=== PATIENT | male | born 1980 | race Hispanic/Latino ===

== ENCOUNTER 2019-08-17 08:38 | Emergency (ER) | payer SELFPAY ==
[2019-08-17] MEDS ORDERED: KETOROLAC TROMETHAMINE 60 MG/2 ML VIAL ONE (09:31)
== END 2019-08-17 09:48 | disposition home or self-care (01) ==
LOC: EDH 08:38
DX: S93.492A Sprain of other ligament of left ankle, initial encounter (principal); J45.909 Unspecified asthma, uncomplicated; I10 Essential (primary) hypertension; E11.9 Type 2 diabetes mellitus without complications; E78.00 Pure hypercholesterolemia, unspecified; X50.1XXA Overexertion from prolonged static or awkward postures, initial encounter; Y93.89 Activity, other specified; Y92.098 Other place in other non-institutional residence as the place of occurrence of the external cause; Y99.8 Other external cause status
CPT/HCPCS: 73610; 96372; 99284; J1885

== ENCOUNTER 2019-11-15 18:37 | Inpatient (IN) | payer SELFPAY ==
[~2019-11-15] VITALS: Ht 167.6 cm; Wt 84.1 kg
[2019-11-15] MEDS ORDERED: MORPHINE SULFATE 2 MG/ML 1ML SYG ONE (19:02)
[2019-11-15] MEDS ORDERED: ONDANSETRON HCL 4 MG/2 ML VIAL ONE (19:02)
[2019-11-15] MEDS ORDERED: SODIUM CHLORIDE 0.9% 1000ML 1,000 ML IV ONE ×2 (19:03→22:51)
[2019-11-15 19:25] LABS: APPEARANCE,URINE Clear (CLEAR); BILIRUBIN,URINE Negative (NEGATIVE); COLOR,URINE Yellow (YELLOW); GLUCOSE, URINE (UA) >=1000 mg/dL (NEGATIVE); KETONES,URINE Negative (NEGATIVE); LEUKOCYTE ESTERASE ,URINE Negative (NEGATIVE); NITRATE,URINE Negative (NEGATIVE); OCCULT BLOOD,URINE Moderate (NEGATIVE); PH,URINE 5.5 (5.0-8.0); PROTEIN,URINE POS 2+ mg/dL (NEGATIVE)
[2019-11-15 19:34] LABS: BACTERIA,URINE Few /HPF (None Seen); MUCUS,URINE Few LPF (None Seen); SQUAMOUS EPITHELIAL CELL,UR 0-2 /HPF (0-2)
[2019-11-15 20:06] LABS: BASOPHILS % (AUTO) 0.3 % (0.0-5.0); EOSINOPHILS % (AUTO) 1.6 % (0.0-8.0); HEMATOCRIT 44.5 % (42-54); LYMPHOCYTES % (AUTO) 31.5 % (21.0-51.0); MEAN CORPUSCULAR HEMOGLOBIN 28.5 pg (27.0-33.0); MEAN CORPUSCULAR HGB CONC 34.4 g/dL (32.0-36.0); MEAN CORPUSCULAR VOLUME 82.9 fL (79-99); MONOCYTES % (AUTO) 5.4 % (3.0-13.0); NEUTROPHILS % (AUTO) 60.5 % (40.0-77.0); PLATELET COUNT (AUTO) 240 K/uL (130-400); RED BLOOD CELL COUNT(AUTO) 5.37 MIL/uL (4.50-6.20); RED CELL DISTRIBUTION WIDTH 12.6 % (11.0-15.5); WHITE BLOOD COUNT (AUTO) 9.7 K/uL (4.8-10.8)
[2019-11-15 20:18] LABS: CREATININE 1.1 mg/dL (0.5-1.5); POTASSIUM 3.8 mmol/L (3.5-5.1)
[2019-11-15 20:22] LABS: ALBUMIN 4.4 g/dL (3.5-5.0); BILIRUBIN,TOTAL 0.4 mg/dL (0.2-1.0); TOTAL PROTEIN, SERUM 7.7 g/dL (6.0-8.3)
[2019-11-15] MEDS ORDERED: KETOROLAC TROMETHAMINE 30MG/ML ONE (20:36)
[2019-11-15] MEDS ORDERED: TAMSULOSIN HCL 0.4 MG CAP.ER.24H ONE (20:36)
[2019-11-15] MEDS: SODIUM CHLORIDE 0.9% 1000ML 1,000 ML IV SCH (21:32)
[2019-11-15] MEDS ORDERED: ONDANSETRON HCL 4 MG/2 ML VIAL IV PRN (21:45)
[2019-11-15] MEDS ORDERED: LACTULOSE 20 GM/30 ML UDCUP PO PRN (21:45)
[2019-11-15] MEDS ORDERED: ACETAMINOPHEN 325 MG TAB PO PRN ×2 (21:45)
[2019-11-15] MEDS ORDERED: HYDRALAZINE HCL 20 MG/ML VIAL IV PRN (22:30)
[2019-11-16] VITALS (7 sets, daily range): BP systolic 129–145; BP diastolic 76–93
[2019-11-16] MEDS ORDERED: MORPHINE SULFATE 4 MG/1ML SYG ONE (00:13)
[2019-11-16] MEDS ORDERED: PHARMACY COMMUNICATION MISC SCH (03:15)
[2019-11-16] MEDS: SODIUM CHLORIDE 0.9% 1000ML 1,000 ML IV SCH ×3 (04:13→21:07)
[2019-11-16] MEDS: MORPHINE SULFATE 4 MG/1ML SYG IV PRN ×2 (04:14→12:29)
[2019-11-16] MEDS: INSULIN HUMULIN R 100 UNIT/ML 3ML SQ SCH ×4 (06:19→21:00)
[2019-11-16] MEDS ORDERED: FLU VACC QS2019-20 36MOS UP/PF 60 MCG/0.5 ML ML IM SCH ×2 (06:30→10:00)
--- NOTE | 2019-11-16 06:58 | NUR ---
FLU Flu vaccine given.
--- NOTE | 2019-11-16 09:20 | NUR ---
DR. MERCHANT PAGED
[2019-11-16] MEDS: FAMOTIDINE 20MG TAB 20 MG TAB PO SCH ×2 (10:39→21:07)
[2019-11-16] MEDS: ENOXAPARIN SODIUM 40 MG/0.4 ML SYRINGE SQ SCH (12:30)
--- NOTE | 2019-11-16 15:33 | NUR ---
DC PLAN MEET WITH PATIENT, AND MOTHER AT BEDSIDE. PER PATIENT, IS INDEPENDENT WITH ADLS, LIVES WITH , MOTHER, AND CHILDREN (AGE RANGING FROM 5-16YR OLD), HAS NEBULIZER, NO PROVIDER OR COMMUNITY SERVICES IN USE, AND FEELS SAFE TO RETURN HOME ONCE DISCHARGED FROM HOSPITAL. Addendum: 11/16/19 at 1536 by ANNEMARIE MARISCAL RN CM Amended: Links added.
--- NOTE | 2019-11-16 16:00 | NUR ---
[facility] PATIENT PER PATIENT, GOES TO [facility] AND WILL FOLLW UP THERE
--- NOTE | 2019-11-16 16:01 | NUR ---
RE-PAGED DR. MERCHANT; SPOKE W/ YESENIA SPACE OFFICER STATES DOCTOR HAS BEEN IN SURGERY BUT WILL CONVEY MESSAGE TO HER.
[2019-11-16] MEDS: KETOROLAC TROMETHAMINE 15MG/ML IV PRN (17:48)
--- NOTE | 2019-11-16 20:02 | NUR ---
NPO STATUS Pt told re npo after midnight status,verbalized understanding.
--- NOTE | 2019-11-16 20:12 | NUR ---
dr. clements called back states is covering for puente orders entered.
[2019-11-17] VITALS (26 sets, daily range): BP systolic 109–146; BP diastolic 62–95
[2019-11-17] MEDS: SODIUM CHLORIDE 0.9% 1000ML 1,000 ML IV SCH ×3 (03:18→20:57)
[2019-11-17] MEDS: MORPHINE SULFATE 4 MG/1ML SYG IV PRN ×2 (03:19→08:15)
[2019-11-17] MEDS: INSULIN HUMULIN R 100 UNIT/ML 3ML SQ SCH ×4 (05:31→21:01)
--- NOTE | 2019-11-17 06:08 | NUR ---
SHOWERED Pt took a shower,remains Npo after midnight for possible procedure.
[2019-11-17 06:33] LABS: CREATININE 1.1 mg/dL (0.5-1.5); POTASSIUM 4.1 mmol/L (3.5-5.1)
[2019-11-17] MEDS: ENOXAPARIN SODIUM 40 MG/0.4 ML SYRINGE SQ SCH (08:29)
[2019-11-17] MEDS: FAMOTIDINE 20MG TAB 20 MG TAB PO SCH ×2 (08:29→20:57)
[2019-11-17] MEDS ORDERED: CEFTRIAXONE SODIUM 1 GM IVP PRN (11:15)
[2019-11-17] MEDS ORDERED: CEFTRIAXONE SODIUM 1 GM ONE (11:16)
[2019-11-17] MEDS ORDERED: LIDOCAINE PF 2% 5ML ABBOJECT ONE (11:30)
[2019-11-17] MEDS ORDERED: FENTANYL CITRATE PF 50 MCG/1 ML 2ML VIAL ONE (11:31)
[2019-11-17] MEDS ORDERED: PROPOFOL 10 MG/ML 20ML VIAL IV ONE (11:31)
[2019-11-17] MEDS ORDERED: MIDAZOLAM HCL 1 MG/ML 2ML VIAL ONE (11:31)
[2019-11-17] MEDS ORDERED: ROCURONIUM 10MG/1ML SYR 10 MG/ML ML ONE (11:31)
[2019-11-17] MEDS ORDERED: DEXAMETHASONE SOD PHOSPHATE 10MG/ML 1ML VIAL ONE (11:45)
[2019-11-17] MEDS ORDERED: GLYCOPYRROLATE 1 MG/5 ML SYRINGE ONE (11:45)
[2019-11-17] MEDS ORDERED: ONDANSETRON HCL 4 MG/2 ML VIAL ONE (11:45)
[2019-11-17] MEDS ORDERED: NEOSTIGMINE 5MG/5ML SYR IV ONE (11:45)
--- NOTE | 2019-11-17 19:20 | NUR ---
POST-OP Pt had Lithotripsy/stent done today per Dr Baeza,as per report from morning nurse Hospitalist did not discharge him tonight.Discussed plan of care with pt.Pt voiding well,states he had passed a small stone and kept it in a cup.Pt states pain is tolerable at this time.
[2019-11-18 04:00] VITALS: BP 122/70
[2019-11-18] MEDS: KETOROLAC TROMETHAMINE 15MG/ML IV PRN (04:17)
[2019-11-18] MEDS: SODIUM CHLORIDE 0.9% 1000ML 1,000 ML IV SCH (04:17)
[2019-11-18] MEDS: INSULIN HUMULIN R 100 UNIT/ML 3ML SQ SCH (05:40)
--- NOTE | 2019-11-18 06:00 | NUR ---
AM ASSESSMENT PATIENT AWAKE AND ALERT WITH NO SIGNS OF OBVIOUS DISTRESS. PATIENT IS ASKING WHAT TIME HE MAY GO HOME TODAY. PENDING ARRIVAL OF MD FOR NEW ORDERS. STRING NOTED TO [facility] INTACT. IV IS PATENT INFUSING FLUIDS VIA IV PUMP WITH NO REDNESS OR SWELLING NOTED TO SITE. WILL CONTINUE TO MONITOR.
[2019-11-18 06:28] LABS: CREATININE 0.9 mg/dL (0.5-1.5); POTASSIUM 4.4 mmol/L (3.5-5.1)
[2019-11-18 08:11] VITALS: BP 137/71
[2019-11-18] MEDS: ENOXAPARIN SODIUM 40 MG/0.4 ML SYRINGE SQ SCH (08:11)
[2019-11-18] MEDS: FAMOTIDINE 20MG TAB 20 MG TAB PO SCH (08:12)
[2019-11-18 11:15] VITALS: BP 133/75
--- NOTE | 2019-11-18 11:15 | NUR ---
INSTRUCTIONS DISCHARGE INSTRUCTIONS GIVEN TO PATIENT AND SPOUSE USING TEACH BACK. NEW PRESCRIPTION PLACED IN PACKET ALONG WITH ALL PRINTED INFORMATION AND MD INSTRUCTIONS. IV REMOVED WITH TIP INTACT. DIRECT PRESSURE APPLIED UNTIL BLEEDING CONTROLLED THEN SITE COVERED WITH GAUZE AND SECURED WITH TAPE. NO QUESTIONS OR CONCERNS VOICED. PENDING RIDE HOME.
== END 2019-11-18 12:15 | disposition home or self-care (01) | DRG 661 ==
LOC: EDH 18:37 → EEVIPCON 18:37 → EDHIP 18:38 → OBSVTOIN 18:38 → 3DH 11-16 01:33
PROVIDERS: ADMIT Internal Medicine; ATTEND Internal Medicine
PROC: 3E02340 Introduction of Influenza Vaccine into Muscle, Percutaneous Approach (ICD-10-PCS; 2019-11-16)
PROC: 0TC68ZZ Extirpation of Matter from Right Ureter, Via Natural or Artificial Opening Endoscopic (ICD-10-PCS; principal; 2019-11-17 11:32)
PROC: 0T768DZ Dilation of Right Ureter with Intraluminal Device, Via Natural or Artificial Opening Endoscopic (ICD-10-PCS; 2019-11-17 11:32)
DX: N13.2 Hydronephrosis with renal and ureteral calculous obstruction (principal); K57.30 Diverticulosis of large intestine without perforation or abscess without bleeding; E11.9 Type 2 diabetes mellitus without complications; I10 Essential (primary) hypertension; K59.00 Constipation, unspecified; K76.0 Fatty (change of) liver, not elsewhere classified; Z87.442 Personal history of urinary calculi; Z23 Encounter for immunization
CPT/HCPCS: 36415; 74018; 74176; 74420; 80048; 80053; 81001; 82150; 82360; 82948; 83690; 85025; C1758; C1769; C2617; G0008; G0378; J0696; J1100; J1650; J1815; J1885; J2001; J2250; J2270; J2405; J2704; J2710; J3010; J3490; J7030; Q2035

== ENCOUNTER 2020-11-26 14:34 | Emergency (ER) | payer SELFPAY ==
[2020-11-26] MEDS ORDERED: HYDROCODONE/ACETAMINOPHEN 10/325 MG TAB ONE (15:01)
== END 2020-11-26 15:34 | disposition home or self-care (01) ==
LOC: EDH 14:34
DX: S60.041A Contusion of right ring finger without damage to nail, initial encounter (principal); I10 Essential (primary) hypertension; J45.909 Unspecified asthma, uncomplicated; E11.9 Type 2 diabetes mellitus without complications; E78.00 Pure hypercholesterolemia, unspecified; Z87.442 Personal history of urinary calculi; W23.0XXA Caught, crushed, jammed, or pinched between moving objects, initial encounter; Y93.89 Activity, other specified; Y92.89 Other specified places as the place of occurrence of the external cause; Y99.8 Other external cause status
CPT/HCPCS: 11740; 73140

== ENCOUNTER 2021-05-04 15:30 | Emergency (ER) | payer OTHER ==
[~2021-05-04] VITALS: Ht 170.2 cm; Wt 79.4 kg
[2021-05-04] MEDS ORDERED: KETOROLAC 30MG VIAL (30MG/ML) IV ONE (15:31)
[2021-05-04] MEDS ORDERED: CYCLOBENZAPRINE HCL 10 MG TABLET PO ONE (15:31)
[2021-05-04 15:53] VITALS: BP 153/105
[2021-05-04 15:58] VITALS: BP 142/88
[2021-05-04 16:15] VITALS: BP 132/64
[2021-05-04 16:30] VITALS: BP 131/62
[2021-05-04 16:45] VITALS: BP 129/59
[2021-05-04] MEDS ORDERED: KETOROLAC 60 MG VIAL (30MG/ML) IM SCH (18:00)
[2021-05-04] MEDS ORDERED: CYCLOBENZAPRINE HCL 10 MG TABLET PO SCH (18:00)
[2021-05-04] MEDS ORDERED: NAPR-1180 PO (19:02)
[2021-05-04] MEDS ORDERED: CYCL10TA7 PO (19:02)
[2021-05-04 19:12] VITALS: BP 145/97
== END 2021-05-04 19:41 | disposition home or self-care (01) ==
LOC: EDH 15:30
DX: S33.5XXA Sprain of ligaments of lumbar spine, initial encounter (principal); S13.8XXA Sprain of joints and ligaments of other parts of neck, initial encounter; S63.591A Other specified sprain of right wrist, initial encounter; Z79.899 Other long term (current) drug therapy; V47.5XXA Car driver injured in collision with fixed or stationary object in traffic accident, initial encounter; Y93.89 Activity, other specified; Y92.410 Unspecified street and highway as the place of occurrence of the external cause; Y99.8 Other external cause status
CPT/HCPCS: 72040; 72100; 73100; 96372; 99285; J1885

== ENCOUNTER 2021-07-16 16:38 | Emergency (ER) | payer OTHER ==
[~2021-07-16] VITALS: Ht 170.2 cm; Wt 78.9 kg
[~2021-07-16 16:38] MED LIST: CYCL10TA7 PO; NAPR-1180 PO
[2021-07-16 16:39] VITALS: BP 135/94
[2021-07-16] MEDS ORDERED: CEPH500B PO (17:59)
[2021-07-16 18:01] VITALS: BP 126/78
== END 2021-07-16 18:51 | disposition home or self-care (01) ==
LOC: EDH 16:38
DX: S01.511A Laceration without foreign body of lip, initial encounter (principal); J45.909 Unspecified asthma, uncomplicated; I10 Essential (primary) hypertension; E11.9 Type 2 diabetes mellitus without complications; Z79.1 Long term (current) use of non-steroidal anti-inflammatories (NSAID); Z87.442 Personal history of urinary calculi; Y04.2XXA Assault by strike against or bumped into by another person, initial encounter; Y93.89 Activity, other specified; Y92.89 Other specified places as the place of occurrence of the external cause; Y99.8 Other external cause status

== ENCOUNTER 2021-10-09 11:32 | Inpatient (IN) | payer OTHER ==
[~2021-10-09] VITALS: Ht 170.2 cm; Wt 78.5 kg
[~2021-10-09 11:32] MED LIST changes: +CEPH500B PO; +CYCL-309 PO; -CYCL10TA7 PO
[2021-10-09] MEDS ORDERED: ZOSYN 3.375GM +NS 50ML IV SCH (12:00)
[2021-10-09] MEDS ORDERED: 0.9%NACL 50ML 50 ML IV ONE (12:09)
[2021-10-09 12:29] LABS: BASOPHILS % (AUTO) 0.3 % (0.0-5.0); EOSINOPHILS % (AUTO) 0.4 % (0.0-8.0); LYMPHOCYTES % (AUTO) 12.3 % (21.0-51.0); MEAN CORPUSCULAR HEMOGLOBIN 28.7 pg (27.0-33.0); MEAN CORPUSCULAR HGB CONC 34.8 g/dL (32.0-36.0); MEAN CORPUSCULAR VOLUME 82.4 fL (79-99); MONOCYTES % (AUTO) 4.7 % (3.0-13.0); NEUTROPHILS % (AUTO) 81.6 % (40.0-77.0); PLATELET COUNT (AUTO) 284 K/uL (130-400); RED BLOOD CELL COUNT(AUTO) 5.34 MIL/uL (4.50-6.20); WHITE BLOOD COUNT (AUTO) 14.5 K/uL (4.8-10.8)
[2021-10-09 12:37] LABS: CREATININE 1.1 mg/dL (0.5-1.5); POTASSIUM 4.7 mmol/L (3.5-5.1)
[2021-10-09 12:42] LABS: BILIRUBIN,TOTAL 0.4 mg/dL (0.2-1.0); CRP QUANTITATIVE 37.6 mg/L (0.00-9.0); TOTAL PROTEIN, SERUM 8.2 g/dL (6.0-8.3)
[2021-10-09] MEDS ORDERED: NITROGLYCERIN 0.4 MG SL TAB SL PRN (14:00)
[2021-10-09] MEDS ORDERED: ACETAMINOPHEN 325 MG TAB PO PRN ×2 (14:00)
[2021-10-09] MEDS ORDERED: LACTULOSE 20 GM/30 ML UDCUP PO PRN (14:00)
[2021-10-09] MEDS ORDERED: ONDANSETRON 4MG INJ IV PRN (14:00)
[2021-10-09] MEDS ORDERED: ZOLPIDEM TARTRATE 5 MG TAB PO PRN (14:00)
[2021-10-09] MEDS ORDERED: DIPHENHYDRAMINE HCL 25 MG CAPSULE PO PRN (14:00)
[2021-10-09] MEDS ORDERED: HYDRALAZINE 20MG/ML VIAL IV PRN (14:00)
[2021-10-09] MEDS ORDERED: INSULIN HUMULIN R 100 UNIT/ML 3ML SQ ONE (14:00)
[2021-10-09 14:16] LABS: HEMOGLOBIN A1C 10.1 % (4.0-6.0)
[2021-10-09 16:00] VITALS: BP 132/88
[2021-10-09] MEDS: INSULIN HUMULIN R 100 UNIT/ML 3ML SQ SCH ×3 (16:30→21:00)
[2021-10-09] MEDS: 0.9%NACL 1000ML 1,000 ML IV SCH (17:04)
[2021-10-09] MEDS ORDERED: VANCOMYCIN PROTOCOL PER PHARMACY IV SCH (19:00)
[2021-10-09] MEDS ORDERED: COMPOUND IV REFRIGERATED 1 EACH IVSOLN MISC PRN (19:30)
[2021-10-09] MEDS ORDERED: LIDOCAINE HCL-MPF 1% 2ML VIAL ONE (19:42)
[2021-10-09] MEDS ORDERED: LIDOCAINE HCL MPF 1% 5ML VIAL ONE (19:46)
[2021-10-09 20:13] VITALS: BP 128/75
[2021-10-09] MEDS ORDERED: TRAMADOL HCL 50 MG TABLET ONE (21:11)
[2021-10-09] MEDS: FAMOTIDINE 20MG TAB PO SCH (21:13)
[2021-10-09] MEDS: ZOSYN 3.375GM+NS 50ML 50 ML IV SCH (21:13)
[2021-10-09] MEDS: 0.9%NACL 50ML 50 ML IV SCH (21:13)
[2021-10-09] MEDS: VANCOMYCIN 1.25GM/NS 250ML IVPB SCH ×2 (21:25)
[2021-10-09] MEDS: INSULIN GLARGINE 100 UNITS/ML 10 ML VIAL SQ SCH (23:28)
[2021-10-09 23:54] VITALS: BP 127/83
[2021-10-10 03:57] VITALS: BP 116/79
[2021-10-10 04:22] LABS: HEMATOCRIT 41.5 % (42-54); MEAN CORPUSCULAR HEMOGLOBIN 28.2 pg (27.0-33.0); MEAN CORPUSCULAR HGB CONC 34.5 g/dL (32.0-36.0); MEAN CORPUSCULAR VOLUME 81.9 fL (79-99); RED BLOOD CELL COUNT(AUTO) 5.07 MIL/uL (4.50-6.20); WHITE BLOOD COUNT (AUTO) 11.2 K/uL (4.8-10.8)
[2021-10-10 04:40] LABS: ALBUMIN 3.5 g/dL (3.5-5.0); BILIRUBIN,TOTAL 0.4 mg/dL (0.2-1.0); CREATININE 1.2 mg/dL (0.5-1.5); POTASSIUM 4.5 mmol/L (3.5-5.1); TOTAL PROTEIN, SERUM 7.5 g/dL (6.0-8.3)
[2021-10-10] MEDS: 0.9%NACL 50ML 50 ML IV SCH ×3 (05:26→20:35)
[2021-10-10] MEDS: ZOSYN 3.375GM+NS 50ML 50 ML IV SCH ×3 (05:26→20:35)
[2021-10-10] MEDS: 0.9%NACL 1000ML 1,000 ML IV SCH ×2 (06:33→20:48)
[2021-10-10] MEDS: INSULIN HUMULIN R 100 UNIT/ML 3ML SQ SCH ×7 (06:37→20:38)
[2021-10-10 08:00] VITALS: BP 118/87
[2021-10-10] MEDS: TRAMADOL HCL 50 MG TABLET PO PRN ×2 (08:49→15:18)
[2021-10-10] MEDS: FAMOTIDINE 20MG TAB PO SCH ×2 (08:49→20:36)
[2021-10-10] MEDS: VANCOMYCIN 1.25GM/NS 250ML IVPB SCH ×4 (09:00→20:35)
[2021-10-10 12:00] VITALS: BP 126/72
[2021-10-10 16:09] VITALS: BP 137/89
[2021-10-10] MEDS ORDERED: MORPHINE 2 MG SYG IVP PRN (17:30)
[2021-10-10 19:43] VITALS: BP 121/69
[2021-10-10] MEDS: INSULIN GLARGINE 100 UNITS/ML 10 ML VIAL SQ SCH (20:38)
[2021-10-10 23:34] VITALS: BP 121/82
[2021-10-11 03:31] VITALS: BP 118/72
[2021-10-11 04:18] LABS: MEAN CORPUSCULAR HEMOGLOBIN 28.4 pg (27.0-33.0); MEAN CORPUSCULAR HGB CONC 34.3 g/dL (32.0-36.0); RED BLOOD CELL COUNT(AUTO) 4.82 MIL/uL (4.50-6.20); RED CELL DISTRIBUTION WIDTH 11.9 % (11.0-15.5)
[2021-10-11] MEDS: INSULIN HUMULIN R 100 UNIT/ML 3ML SQ SCH ×4 (05:03→16:30)
[2021-10-11] MEDS: ZOSYN 3.375GM+NS 50ML 50 ML IV SCH (06:11)
[2021-10-11] MEDS: 0.9%NACL 50ML 50 ML IV SCH (06:12)
[2021-10-11] MEDS ORDERED: ACETAMINOPHEN WITH CODEINE 1 TAB TAB PO PRN (07:30)
[2021-10-11 08:00] VITALS: BP 118/91
[2021-10-11] MEDS: GLIPIZIDE 5 MG TABLET PO SCH ×2 (09:36→17:25)
[2021-10-11] MEDS: METFORMIN HCL 500 MG TABLET PO SCH ×3 (09:37→17:25)
[2021-10-11] MEDS: VANCOMYCIN 1.25GM/NS 250ML IVPB SCH ×2 (09:37)
[2021-10-11] MEDS: FAMOTIDINE 20MG TAB PO SCH (09:37)
[2021-10-11] MEDS: ACETAMINOPHEN WITH CODEINE 1 TAB TAB PO PRN ×2 (09:42→17:27)
[2021-10-11] MEDS ORDERED: AMOX-429 PO (11:48)
[2021-10-11] MEDS ORDERED: GLIP5TAB11 PO (11:51)
[2021-10-11] MEDS ORDERED: METF-444 PO (11:51)
[2021-10-11] MEDS ORDERED: AMOX/CLAV 875/125MG TAB PO SCH (12:00)
[2021-10-11] MEDS ORDERED: DIPHENHYDRAMINE HCL 25 MG CAPSULE PO PRN (12:00)
[2021-10-11] MEDS ORDERED: DiphenhydrAMINE HCL 50 MG/ML VIAL IV PRN (12:00)
[2021-10-11 12:04] VITALS: BP 132/84
[2021-10-11 15:58] VITALS: BP 123/78
== END 2021-10-11 18:15 | disposition home or self-care (01) | DRG 718 ==
LOC: EDH 11:32 → OBSVTOIN 11:33 → EDHIP 11:33 → 3BH 15:22
PROVIDERS: ADMIT Internal Medicine; ATTEND Internal Medicine
PROC: 0V950ZZ Drainage of Scrotum, Open Approach (ICD-10-PCS; principal; 2021-10-09)
DX: N49.2 Inflammatory disorders of scrotum (principal); I10 Essential (primary) hypertension; E78.5 Hyperlipidemia, unspecified; M10.9 Gout, unspecified; E11.9 Type 2 diabetes mellitus without complications; E78.00 Pure hypercholesterolemia, unspecified; Z79.4 Long term (current) use of insulin; Z87.442 Personal history of urinary calculi; Z86.73 Personal history of transient ischemic attack (TIA), and cerebral infarction without residual deficits; Z83.3 Family history of diabetes mellitus; Z82.3 Family history of stroke; Z82.49 Family history of ischemic heart disease and other diseases of the circulatory system; Z82.0 Family history of epilepsy and other diseases of the nervous system
CPT/HCPCS: 10060; 36415; 76870; 80048; 80053; 80202; 82948; 83036; 83605; 85025; 85027; 86140; 87040; 87070; 87076; 87077; 87186; G0378; J1815; J2543; J3370; J3490; J7050; Q0163